=== PATIENT | male | born 1970 | race Asian ===

== ENCOUNTER 2018-06-08 14:53 | Outpatient (CLI) | payer OTHER ==
[~2018-06-08 14:53] MED LIST: ALLO100T22 PO; AMLO10TA PO; CARV25TA PO; CLONIDINE0.1 MG PO; FERR325T5 PO; FURO40TA93 PO; LISI20TA11 PO; MULT VITAMI1 PO; PHOSLO667 MG PO; RENA-VITE PO; VIT A & D PO
== END 2018-06-08 22:21 | disposition home or self-care (01) ==
LOC: LAB 14:53
DX: D64.89 Other specified anemias (principal); D63.1 Anemia in chronic kidney disease
CPT/HCPCS: 85014; 85018

== ENCOUNTER 2018-06-20 14:38 | Outpatient (CLI) | payer OTHER | END 2018-06-20 20:42 | disposition home or self-care (01) | LOC: LAB 14:38 | DX: D64.89 Other specified anemias (principal); D63.1 Anemia in chronic kidney disease | CPT/HCPCS: 85014; 85018 ==

== ENCOUNTER 2019-05-31 15:35 | Outpatient (CLI) | payer OTHER | END 2019-05-31 22:53 | disposition home or self-care (01) | LOC: LAB 15:35 | DX: D64.89 Other specified anemias (principal) | CPT/HCPCS: 85018 ==

== ENCOUNTER 2021-03-05 07:35 | Emergency (ER) | payer OTHER ==
[2021-03-19 13:59] LABS: PARTIAL THROMBOPLASTIN TIME 24.7 SECONDS (24.5-33.6)
[2021-03-19 14:00] LABS: PLATELET COUNT 298 K/uL (142-355)
[2021-03-19 14:02] LABS: POTASSIUM 3.8 mmol/L (3.6-5.2)
== END 2021-03-05 10:05 | disposition short-term general hospital (02) ==
LOC: ED 07:35
PROVIDERS: Family Medicine
DX: S06.2X0A Diffuse traumatic brain injury without loss of consciousness, initial encounter (principal); S06.6X0A Traumatic subarachnoid hemorrhage without loss of consciousness, initial encounter; J94.8 Other specified pleural conditions; V49.9XXA Car occupant (driver) (passenger) injured in unspecified traffic accident, initial encounter; Y92.9 Unspecified place or not applicable
CPT/HCPCS: 36415; 80053; 83735; 84100; 84484; 85027; 85610; 85730; 93005; 96374; 96375; 99284; J2175; J2405

== ENCOUNTER 2022-08-02 11:24 | Outpatient (CLI) | payer OTHER | END 2022-08-02 20:00 | disposition home or self-care (01) | LOC: CT 11:24 | PROVIDERS: ATTEND Student in an Organized Health Care Education/Training Program | DX: M54.59 Other low back pain (principal) ==